=== PATIENT | male | born 1985 | race Caucasian/White ===

== ENCOUNTER 2017-04-29 20:52 | Emergency (ER) | payer OTHER ==
[~2017-04-29] VITALS: Ht 188 cm; Wt 100.5 kg
[2017-04-29 20:59] VITALS: BP 134/83; TEMP 37.1; Ht 188 cm; Wt 100.5 kg
[2017-04-29] MEDS ORDERED: AMOXICILLIN/CLAVULANATE TAB 875 MG TAB PO STA (21:08)
[2017-04-29] MEDS ORDERED: LIDOCAINE/EPINEPHRINE 1% 20 ML VIAL INFIL STA (21:08)
[2017-04-29] MEDS ORDERED: AMOXICIL/CLAVU 875MG HOME PACK PO STA (21:08)
[2017-04-29] MEDS ORDERED: DIPHTHERIA/TETANUS/PERTUSSIS 0.5 ML SYR/VIAL IM. ONE (21:15)
[2017-04-29] MEDS ORDERED: SERT-234 PO (21:40)
[2017-04-29] MEDS ORDERED: LAMO100T16 PO (21:40)
[2017-04-29] MEDS ORDERED: LISD40CA PO (21:40)
--- NOTE | 2017-04-29 22:05 | EMERGENCY ROOM VISIT NOTE ---
ED Visit Note First contact with patient: 21:03 Chief Complaint: "Laceration on side of face/chin area". History of Present Illness: This patient is a 31-year-old male who presents to the Emergency Department via private vehicle for evaluation of their facial laceration. Patient sustained the laceration while playing with the dog, when he it from fighting with the cat, and it playfully bit him on the left side of the face. They report a moderate amount of bleeding initially. They report no loss of consciousness. They deny any headache, visual disturbance , nausea, vomiting, or neck pain. Patient's Tetanus status is not currently up- to-date. Pain is rated as a 1/10. Medications: As noted below Allergies: None PMH: No pertinent SHx: Patient lives locally with . ROS: All pertinent positive and negative review of systems are appropriately documented in the History of Present Illness. Physical Exam: VITAL SIGNS - Vital signs and nursing notes were reviewed. Stable. GENERAL -31-year-old male appearing his stated age. Communicates well with provider and answers questions appropriately. SKIN - There is a 2 cm laceration noted left side of the face just anterior to the angle of mandible on the left. The edges gape apart with traction. There is minimal active bleeding appreciated. No deep structures including vessels, musculature, or bony structures are appreciated. HEAD - Normocephalic. No Hicks's Sign or Raccoon's Eyes. EARS - No deformities of external structures noted on gross examination bilaterally. No hemotympanum present. No tympanic perforation noted. MOUTH/OROPHARYNX - Without perioral cyanosis. No intraoral laceration. ED Course: Patient was seen and evaluated by myself. Patient had no focal neurological deficits. Patient's exam is otherwise unremarkable. Low mechanism of injury, dog sharp tooth cut his left cheek. Risks and benefits of performing primary wound closure versus no repair were discussed with the patient who verbalizes understanding. Verbal consent was obtained prior to performing the procedure. 3 cc of 1% buffered lidocaine with epinephrine was used to anesthetize the 2 cm facial laceration. The wound was cleansed and prepped in the typical sterile fashion utilizing normal saline and Betadine. The wound was sterilely draped. Once proper anesthetization was established, the wound was further examined and demonstrated no deep involvement. The wound was copiously irrigated with normal saline and Betadine. The wound was closed using 3 simple, 6-0 nylon sutures with the wound edges being well approximated. Care was taken 2 separate the sutures slightly at the inferior and dependent portion of the laceration to allow for drainage secondary to the high risk of infection. Patient tolerated the procedure well. No complications were met. The wound was cleansed and dressed with a Bacitracin dressing. He was given the Adacel vaccination as well as Augmentin prophylaxis because of the dog bite. Patient educated on worrisome symptoms for return visit to the Emergency Department. Patient discharged to home in good condition. In the evaluation treatment this patient following differential diagnoses were entertained: Laceration, dog bite, among others. Current/Historical Medications Scheduled Amoxicillin & Pot Clavulanate (Augmentin 875-125 mg), 1 TAB PO BID Lamotrigine (Lamictal), 100 MG PO BID Lisdexamfetamine Dimesylate (Vyvanse), 40 MG PO DAILY Sertraline (Zoloft), 200 MG PO DAILY Allergies Coded Allergies: No Known Allergies (Unverified , 04/29/17) Vital Signs Date Time Temp Pulse Resp B/P (MAP) Pulse Ox O2 Delivery O2 Flow Rate FiO2 04/29/17 22:15 82 98 04/29/17 20:59 37.1 91 18 134/83 97 Room Air Medications Administered Medications (Trade) Dose Ordered Sig/Leon Route Start Time Stop Time Status Last Admin Dose Admin Lidocaine/ Epinephrine (Xylocaine/Epine 1% Inj) 20 ml ONE STAT INFIL 04/29/17 21:08 04/29/17 21:10 DC 04/29/17 21:18 20 ML Diphtheria/ Pertussis/Tetanus Vacc (Adacel Inj) 0.5 ml ONCE ONCE IM. 04/29/17 21:15 04/29/17 21:16 DC 04/29/17 21:19 0.5 ML Amoxicillin/ Clavulanate Potassium (Augmentin 875MG Home Pack) 1 homepack UD STAT PO 04/29/17 21:08 04/29/17 21:10 DC 04/29/17 21:18 1 HOMEPACK Amoxicillin/ Clavulanate Potassium (Augmentin Tab) 875 mg NOW STAT PO 04/29/17 21:08 04/29/17 21:10 DC 04/29/17 21:17 875 MG Departure Information Impression Primary Impression: Dog bite Additional Impression: Laceration Dispostion Home / Self-Care Condition GOOD Prescriptions Amoxicillin & Pot Clavulanate (Augmentin 875-125 mg) 1 Tab Tab 1 TAB PO BID for 4 Days, #8 TAB Prov: Venancio De Guzman PA-C 04/29/17 Referrals [facility] (PCP) Patient Instructions [facility] Additional Instructions Discharge Instructions: Augmentin every 12 hours. You have received 3 sutures on your face. These sutures are NOT dissolvable and WILL need to be removed by a health care provider in 6 days. You can return to the Emergency Department or contact your Primary Care Provider to have the sutures removed. Proper wound care is essential for adequate wound healing and infection prevention. You can shower and clean the wound with soap and water. Do not scour over the wound, pat dry with a towel. Do not submerse the wound (i.e. bathe or dish wash) until the sutures have been removed. You can use an antibiotic ointment with a dressing over the wound for the next 2-3 days. After this time you may leave the wound dry and open to the air. If crust develops over the wound you can use a Q-tip to apply a 1:1 peroxide:water solution to clean the wound. Look for signs of infection of the wound including: increased pain, swelling, foul discharge, streaking, or increased temperature. If any of these are noticed you should return to the Emergency Department for further assessment and treatment. As with any laceration you may have received nerve damage to the surrounding tissues. This damage may or may not be permanent. You should keep the area covered with sunscreen for the first 6 months to 1 year when at risk for exposure to help minimize scarring. You can also use scar reducing creams or Vitamin E oil to help minimize scarring. For pain control, you can use the following [id number] medicines: - Regular strength (325mg/tab) Tylenol (acetaminophen) 2 tabs every 4-6 hours as needed. Do not exceed 12 tablets in a 24 hour period. Avoid taking more than 3 grams (3000 mg) of Tylenol per day. This includes any other sources of acetaminophen you may take on a regular basis. - Regular strength (200 mg/tab) Advil (ibuprofen) 1-2 tabs every 4-6 hours as needed. Do not exceed a dose of 3200 mg per day. Return to the emergency department if your symptoms worsen despite treatment course outlined above. Problem Qualifiers
[2017-04-29] MEDS ORDERED: AMOX875T PO (22:06)
[2017-04-29 22:15] VITALS: PULSE 82; O2SAT 98
== END 2017-04-29 22:15 | disposition home or self-care (01) ==
LOC: C.EDB 20:53 → C.EDD 22:15
DX: S01.452A Open bite of left cheek and temporomandibular area, initial encounter (principal); W54.0XXA Bitten by dog, initial encounter; Z23 Encounter for immunization

== ENCOUNTER 2017-05-05 13:03 | Emergency (ER) | payer OTHER ==
[~2017-05-05] VITALS: Ht 188 cm; Wt 100.0 kg
[2017-05-05 13:11] VITALS: TEMP 37.2; Ht 188 cm; Wt 100.0 kg
[2017-05-05 14:08] VITALS: BP 125/79; PULSE 68; O2SAT 95
--- NOTE | 2017-05-05 17:05 | EMERGENCY ROOM VISIT NOTE ---
History First contact with patient: 13:43 Chief Complaint: SUTURE/STAPLE REMOVAL Stated Complaint: STITCHES REMOVED Nursing Triage Summary: sutures removed left side of neck/chin no problems History of Present Illness The patient is a 31 year old male who presents to the Emergency Room for a left facial suture removal after being repaired in our department 6 days ago. The patient denies any wound complications. Review of Systems Noncontributory to this visit Past Medical/Surgical History Well documented on previous visit Social History Smoking Status: Never Smoker Current/Historical Medications Scheduled Lamotrigine (Lamictal), 100 MG PO BID Lisdexamfetamine Dimesylate (Vyvanse), 40 MG PO DAILY Sertraline (Zoloft), 200 MG PO DAILY Physical Exam Vital Signs Date Time Temp Pulse Resp B/P (MAP) Pulse Ox O2 Delivery O2 Flow Rate FiO2 05/05/17 14:08 68 95 05/05/17 13:11 37.2 85 16 123/80 97 Pain Rating (0-10): 0 Physical Exam HEENT: Examination of the left mandibular region shows a well-healed laceration without any erythema, fluctuance, pointing or diastases. 3 sutures were removed without any complications. Medical Decision & Procedures ED Course The patient was provided additional verbal wound care instructions, including use of vitamin E oil and a high SPF factor sunblock over the next year to minimize scar darkening as desired. The patient was happy with plan of care, and denied any pain at the time of discharge. Medical Decision Blood Pressure Screening Patient's blood pressure: Normal blood pressure Impression Primary Impression: Encounter for removal of sutures Additional Impression: Facial laceration Departure Information Dispostion Home / Self-Care Condition GOOD Referrals No Doctor, Assigned (PCP) Forms HOME CARE DOCUMENTATION FORM, IMPORTANT VISIT INFORMATION Patient Instructions [facility] Problem Qualifiers Additional Impression: Facial laceration Encounter type: subsequent encounter Qualified Codes: S01.81XD - Laceration without foreign body of other part of head, subsequent encounter
[2017-05-05] MEDS ORDERED: LAMO100T16 PO (21:40)
[2017-05-05] MEDS ORDERED: LISD40CA PO (21:40)
[2017-05-05] MEDS ORDERED: SERT-234 PO (21:40)
== END 2017-05-05 14:09 | disposition home or self-care (01) ==
LOC: C.EDB 13:04 → C.EDD 14:09
DX: S01.81XD Laceration without foreign body of other part of head, subsequent encounter (principal); X58.XXXD Exposure to other specified factors, subsequent encounter